=== PATIENT | female | born 1985 | race African-American/Black ===

== ENCOUNTER 2019-04-23 08:15 | Inpatient (IN) ==
[2019-04-23] MEDS ORDERED: ONDANSETRON 4 MG/2 ML VIAL IV PRN ×2 (08:40→12:28)
[2019-04-23] MEDS ORDERED: BUTORPHANOL 1 MG/ML VIAL IV PRN (08:40)
[2019-04-23] MEDS ORDERED: BUTORPHANOL 2 MG/ML VIAL IV PRN (08:40)
[2019-04-23] MEDS ORDERED: AMPICILLIN INJ 2,000 MG in SODIUM CHLORIDE 0.9% 100 ML IV ONE (08:42)
[2019-04-23] MEDS ORDERED: AMPICILLIN 2,000 MG VIAL ONE (08:47)
[2019-04-23] MEDS ORDERED: diphenhydrAMINE 50 MG/1 ML VIAL IV PRN ×2 (08:48)
[2019-04-23] MEDS ORDERED: hydrOXYzine HCL 25 MG/1 ML VIAL IM PRN (08:48)
[2019-04-23] MEDS ORDERED: NALOXONE 0.4 MG/ML VIAL IV PRN (08:48)
[2019-04-23] MEDS ORDERED: ePHEDrine 50 MG/ML AMP IV PRN (08:48)
[2019-04-23] MEDS ORDERED: FAMOTIDINE 20 MG/2 ML VIAL IV ONE (08:48)
[2019-04-23] MEDS ORDERED: ONDANSETRON 4 MG/2 ML VIAL IV ONE (08:48)
[2019-04-23] MEDS ORDERED: PROMETHAZINE 25 MG/1 ML VIAL IM ONE (08:48)
[2019-04-23] MEDS ORDERED: LACTATED RINGERS 1,000 ML IV ONE (08:48)
[2019-04-23] MEDS ORDERED: CITRIC ACID/SODIUM CITRATE 30 ML UDCUP PO ONE (08:48)
[2019-04-23 08:58] LABS: Basophils % 0.3 % (0.0-0.8); Eosinophils # 0.1 10*3/uL (0.0-0.87); Eosinophils % 0.9 % (0.00-10.9); Hemoglobin 11.3 GM/DL (12.0-16.0); Immature Granulocytes % 0.5 %; Immature Granulocytes Absolute 0.05 #; Lymphocytes # 2.6 10*3/uL (1.4-4.0); Lymphocytes % 26.5 % (21.3-54.2); Mean Corpuscular HGB Conc 30.5 GM/DL (32-36); Mean Corpuscular Volume 77.1 FL (87-102); Mean Platelet Volume 10.1 FL (9.6-12.0); Monocytes % 6.7 % (1.7-12.7); Neutrophils % 65.1 % (38.7-73.9); Platelet Count 282 T/CUMM (130-400); Red Cell Distribution Width 15.9 % (9.3-17.3); White Blood Count 9.8 T/CUMM (4-12)
[2019-04-23] MEDS ORDERED: LACTATED RINGERS 1,000 ML IV SCH (09:00)
[2019-04-23] MEDS ORDERED: fentaNYL 2 MCG/ROPIV 0.2% EPID 100 ML EPIDURAL SCH (09:00)
[2019-04-23 09:36] LABS: Albumin 3.1 G/DL (3.4-5.0); Bilirubin,Total 0.4 MG/DL (0.2-1.0); Calcium 9.1 MG/DL (8.5-10.1); Osmolality,Calculated 273.5 MOS/KG (273-304); Total Protein 7.1 G/DL (6.4-8.3)
[2019-04-23 11:20] LABS: Apearance,Urine CLEAR (Clear); Bilirubin,Urine Negative (Negative); Blood, Urine Moderate mg/dL (Negative); Glucose,Urine (UA) Negative (Negative); Ketones,Urine 20 mg/dL (Negative); Mucus,Urine Occasional /LPF (Occasional); Nitrite,Urine Negative (Negative); Protein,Urine 100 MG/DL; RBC,Urine 272 /HPF (0-4); Squamous Epithelial Cell,Urine Occasional /HPF (0-10); Urine Color Yellow (Yellow); Urine Specific Gravity 1.033 (1.001-1.035); WBC,Urine 2 /HPF (0-6)
[2019-04-23] MEDS ORDERED: LIDOCAINE 1% 50 ML VIAL ONE (11:26)
[2019-04-23] MEDS ORDERED: miSOPROStol 200 MCG TABLET ONE (11:26)
[2019-04-23] MEDS ORDERED: METHYLERGONOVINE 0.2 MG/1 ML AMP ONE (11:27)
[2019-04-23] MEDS: OXYTOCIN/LR 20 UNIT/1,000 ML BAG IV SCH ×2 (11:41→15:22)
[2019-04-23] MEDS ORDERED: RHO(D) IMMUNE GLOBULIN 300 MCG SYRINGE IM ONE (12:28)
[2019-04-23] MEDS ORDERED: BISACODYL 10 MG SUPP RECTAL PRN (12:28)
[2019-04-23] MEDS ORDERED: OXYTOCIN/LR 20 UNIT/1,000 ML BAG IV ONE (12:28)
[2019-04-23] MEDS ORDERED: WITCH HAZEL PADS 100/JAR TOP PRN (12:28)
[2019-04-23] MEDS ORDERED: ACETAMINOPHEN 325 MG TABLET PO PRN (12:28)
[2019-04-23] MEDS ORDERED: DIPH/TET/ACEL PERT BOOSTER VACCINE 0.5 ML VIAL IM ONE (12:28)
[2019-04-23] MEDS ORDERED: oxyCODONE/ACETAMINOPHEN 5-325 MG TABLET PO PRN (12:28)
[2019-04-23] MEDS ORDERED: HYDROCORTISONE 2.5% RECTAL CREAM 30 GM TUBE TOP PRN (12:28)
[2019-04-23] MEDS ORDERED: MEASLES/MUMPS/RUBELLA VACCINE 0.5 ML VIAL SUBCUT ONE (12:28)
[2019-04-23] MEDS ORDERED: BENZOCAINE 20%/MENTHOL 0.5% SPRAY 56 GM CAN TOP PRN (12:28)
[2019-04-23] MEDS ORDERED: LANOLIN 50% CREAM 0.3 OZ TUBE TOP PRN (12:28)
[2019-04-23] MEDS ORDERED: AMPICILLIN INJ 1,000 MG in SODIUM CHLORIDE 0.9% 100 ML IV SCH (13:00)
[2019-04-23] MEDS: IBUPROFEN 800 MG TABLET PO PRN ×2 (16:01→21:21)
[2019-04-23] MEDS: oxyCODONE/ACETAMINOPHEN 5-325 MG TABLET PO PRN (17:14)
[2019-04-23] MEDS: DOCUSATE SODIUM 100 MG CAPSULE PO SCH (20:31)
[2019-04-24] MEDS: IBUPROFEN 800 MG TABLET PO PRN ×4 (03:17→21:12)
[2019-04-24 05:14] LABS: Basophils % 0.2 % (0.0-0.8); Eosinophils # 0.1 10*3/uL (0.0-0.87); Eosinophils % 0.7 % (0.00-10.9); Hemoglobin 9.8 GM/DL (12.0-16.0); Immature Granulocytes % 0.7 %; Immature Granulocytes Absolute 0.09 #; Lymphocytes # 2.7 10*3/uL (1.4-4.0); Lymphocytes % 19.8 % (21.3-54.2); Mean Corpuscular HGB Conc 31.6 GM/DL (32-36); Mean Platelet Volume 10.4 FL (9.6-12.0); Monocytes % 6.9 % (1.7-12.7); Neutrophils % 71.7 % (38.7-73.9); Platelet Count 235 T/CUMM (130-400); Red Blood Count 4.08 MC/CUMM (3.8-5.5); Red Cell Distribution Width 15.8 % (9.3-17.3); White Blood Count 13.8 T/CUMM (4-12)
[2019-04-24] MEDS: DOCUSATE SODIUM 100 MG CAPSULE PO SCH ×2 (09:04→21:12)
[2019-04-24] MEDS: oxyCODONE/ACETAMINOPHEN 5-325 MG TABLET PO PRN (23:29)
[2019-04-25] MEDS: oxyCODONE/ACETAMINOPHEN 5-325 MG TABLET PO PRN (05:34)
[2019-04-25 07:54] VITALS: BP 112/70
[2019-04-25] MEDS: DOCUSATE SODIUM 100 MG CAPSULE PO SCH (08:54)
== END 2019-04-25 10:45 | disposition home or self-care (01) | DRG 807 ==
LOC: N.LDOUT 08:15 → N.LD 08:20 → N.OB 15:28
PROVIDERS: ADMIT Specialist; ATTEND Specialist